=== PATIENT | female | born 1975 | race Caucasian/White ===

== ENCOUNTER 2024-02-01 06:36 | Day surgery (SDC) | payer MEDICAID, OTHER ==
[~2024-02-01] VITALS: Ht 162.6 cm; Wt 68.0 kg
[2024-02-01] MEDS ORDERED: MEPERIDINE 100 MG INJ. 100 MG/ML VIAL ONE (07:22)
[2024-02-01] MEDS ORDERED: MIDAZOLAM HCL 5 MG/5 ML VIAL ONE (07:23)
[2024-02-01] MEDS ORDERED: SIMETHICONE 40 MG/0.6 ML ML ONE (07:23)
[2024-02-01 07:42] LABS: HCG,QUAL RESULT NEGATIVE (NEGATIVE)
[2024-02-01 08:45] VITALS: O2SAT 96
[2024-02-01 10:04] VITALS: BP_SYST 120; PULSE 74; RESP 20
== END 2024-02-01 09:08 | disposition home or self-care (01) ==
LOC: SDS 06:36 → SMU 06:37 → SDS 09:08
PROVIDERS: ATTEND Internal Medicine
DX: R10.9 Unspecified abdominal pain (principal); R07.0 Pain in throat; K44.9 Diaphragmatic hernia without obstruction or gangrene; K21.9 Gastro-esophageal reflux disease without esophagitis; F41.9 Anxiety disorder, unspecified; F17.210 Nicotine dependence, cigarettes, uncomplicated; Z98.890 Other specified postprocedural states; Z79.899 Other long term (current) drug therapy
CPT/HCPCS: 43235; 84703; G0378; J2250; J2175